=== PATIENT | male | born 1950 | race Caucasian/White ===

== ENCOUNTER 2017-08-13 14:46 | Emergency (ER) | payer OTHER ==
[~2017-08-13] VITALS: Ht 162.6 cm; Wt 68.3 kg
[2017-08-13 15:51] LABS: HEMATOCRIT 46.6 % (38.0-50.0); MCH 29.5 PG (29.0-34.0); MCHC 33.7 G/DL (30.0-36.0); MCV 87.6 FL (86-99); RBC DIS.WIDTH-CV 13.7 % (11.8-14.6); RBC DIS.WIDTH-SD 43.7 % (39-53); RED BLOOD COUNT 5.32 M/uL (4.00-5.50); WHITE BLOOD COUNT 6.9 K/uL (4.1-10.2)
[2017-08-13 16:03] LABS: CHLORIDE 107 mEq/L (99-109); POTASSIUM 4.4 mEq/L (3.7-5.4); SODIUM 142 mEq/L (136-147)
[2017-08-13 16:05] LABS: GLUCOSE 99 mg/dL (70-99)
[2017-08-13 16:06] LABS: ANION GAP 10 MEQ/L (2-14)
[2017-08-13 16:09] LABS: GFR ESTIMATE (CALCULATED) 54 mL/min/; UREA NITROGEN (BUN) 20 mg/dL (9-23)
[2017-08-13 16:17] LABS: TROP-I INTERPRETATION NEGATIVE; TROPONIN-I 0.08 ng/mL (0.0-0.30)
[2017-08-13 17:44] LABS: MEAN PLAT.VOLUME 11.1 uM^3 (9.0-12.4); PLAT.SUFFICIENCY ADEQUATE; PLATELET COUNT 211 K/uL (156-360)
[2017-08-13 19:18] VITALS: BP 134/83
== END 2017-08-13 19:20 | disposition home or self-care (01) ==
LOC: EME 14:46
DX: G51.0 Bell's palsy (principal); H60.92 Unspecified otitis externa, left ear; G96.8 Other specified disorders of central nervous system; I10 Essential (primary) hypertension; I25.2 Old myocardial infarction; Z95.1 Presence of aortocoronary bypass graft; Z88.2 Allergy status to sulfonamides
CPT/HCPCS: 70450; 71020; 80048; 84484; 85027; 93005; 99281; 99284